=== PATIENT | female | born 1945 | race Caucasian/White ===

== ENCOUNTER 2016-07-15 13:18 | Day surgery (SDC) | payer MEDICARE, OTHER ==
[2016-07-14 11:36] LABS: HEMOGLOBIN 14.9 g/dL (12.0-16.0)
[2016-07-14 11:40] LABS: PARTIAL THROMBO TIME 26.9 SEC (22.5-37.2); PROTIME (NOT ORD) 13.5 SEC (12.0-14.5)
[2016-07-14 11:51] LABS: BUN (BLOOD UREA NITROGEN) 9 MG/DL (6-23); CALCIUM, SERUM 9.1 MG/DL (8.5-10.4); CHLORIDE, SERUM 106 MMOL/L (96-112); CO2 (CARBON DIOXIDE) 31 MMOL/L (24-34); GFR AFRICAN AMERICAN 66 ML/MIN (>=60); GFR NON AFRICAN AMERICAN 57 ML/MIN (>=60); GLUCOSE, SERUM 88 MG/DL (60-99); POTASSIUM, SERUM 4.4 MMOL/L (3.5-5.3); SODIUM, SERUM 143 MMOL/L (135-148)
[~2016-07-15 13:18] MED LIST: ASAB PO; C5 PO; COZ50 PO; COZAAR100 MG PO; EFFEXOR XR150 MG PO; MEVACOR40 MG PO; MULTIPLE VIT PO; MULTIVIT/MIN PO; NEUR800 PO; NOR25 PO; OTC ACID REDUCER PO; OXYCOD PO; P5 PO; PLAQ200B PO; VOLT75 PO
== END 2016-07-15 21:40 | disposition home or self-care (01) ==
LOC: SDC 13:18
PROVIDERS: Otolaryngology
PROC: 00BM0ZZ Excision of Facial Nerve, Open Approach (ICD-10-PCS; 2016-07-15)
PROC: 0CBB0ZZ Excision of Right Parotid Duct, Open Approach (ICD-10-PCS; principal; 2016-07-15 14:30)
DX: D11.0 Benign neoplasm of parotid gland (principal); D86.9 Sarcoidosis, unspecified; I10 Essential (primary) hypertension; J44.9 Chronic obstructive pulmonary disease, unspecified; G47.33 Obstructive sleep apnea (adult) (pediatric); M06.9 Rheumatoid arthritis, unspecified; E66.9 Obesity, unspecified; Z68.34 Body mass index [BMI] 34.0-34.9, adult; Z88.5 Allergy status to narcotic agent; Z79.82 Long term (current) use of aspirin; Z79.1 Long term (current) use of non-steroidal anti-inflammatories (NSAID); Z79.899 Other long term (current) drug therapy
CPT/HCPCS: 71020; 80048; 85014; 85018; 85610; 85730; 88307; 88331; 93005; J0690; J2370; J2405; J3010